=== PATIENT | female | born 1945 | race American Indian/Alaskan Native ===

== ENCOUNTER → 2025-05-01 | Outpatient (CLI) | payer MEDICARE, SELFPAY ==
--- NOTE | 2025-05-01 12:46 | XR_ITS ---
Examination: Knee, left, 3 views Technique: Knee AP, lateral, oblique 3 views Date and time of exam: May 01, 2025, 1321 hours INDICATIONS: Patient fell again 3 days ago with change of the knee, knee pain. FINDINGS: Severe osteopenia. No fracture or dislocation IMPRESSION: No fracture or dislocation
== END | disposition home or self-care (01) ==
PROVIDERS: PCP Nurse Practitioner Family; Referring Provider Nurse Practitioner Family; Visit Provider Nurse Practitioner Family
DX: S89.92XA Unspecified injury of left lower leg, initial encounter (principal); W19.XXXA Unspecified fall, initial encounter; Z91.81 History of falling
CPT/HCPCS: 73562